=== PATIENT | male | born 1975 | race African-American/Black ===

== ENCOUNTER 2020-09-03 12:59 | Observation (INO) ==
[2020-09-03] MEDS ORDERED: ONDANSETRON 4 MG/2 ML VIAL IM STA (14:52)
[2020-09-03] MEDS ORDERED: MORPHINE 4 MG/1 ML VIAL IM STA (14:52)
[2020-09-03] MEDS ORDERED: MORPHINE 4 MG/1 ML VIAL IV PRN (15:57)
[2020-09-03] MEDS ORDERED: ONDANSETRON 4 MG/2 ML VIAL IV PRN (15:57)
[2020-09-03] MEDS ORDERED: ACETAMINOPHEN 325 MG TABLET PO PRN (15:57)
[2020-09-03 16:19] LABS: Basophils % 0.5 % (0.0-0.8); Eosinophils # 0.2 10*3/uL (0.0-0.87); Eosinophils % 2.2 % (0.00-10.9); Hematocrit 42.3 VOL% (42.0-52.0); Hemoglobin 14.7 GM/DL (14.0-18.0); Immature Granulocytes % 0.2 %; Immature Granulocytes Absolute 0.02 #; Lymphocytes # 3.9 10*3/uL (1.4-4.0); Lymphocytes % 44.5 % (21.2-54.2); Mean Corpuscular HGB Conc 34.8 GM/DL (32-36); Mean Corpuscular Volume 85.1 FL (87-102); Mean Platelet Volume 9.1 FL (9.6-12.0); Monocytes % 9.8 % (1.7-12.7); Neutrophils % 42.8 % (38.7-73.9); Platelet Count 250 T/CUMM (130-400); Red Blood Count 4.97 MC/CUMM (3.8-5.5); Red Cell Distribution Width 13.1 % (9.3-17.3); White Blood Count 8.8 T/CUMM (4-12)
[2020-09-03 16:51] LABS: Albumin 3.7 G/DL (3.4-5.0); Bilirubin,Total 0.4 MG/DL (0.2-1.0); Calcium 8.8 MG/DL (8.5-10.1); Osmolality,Calculated 275.4 MOS/KG (273-304); Total Protein 7.1 G/DL (6.4-8.3)
[2020-09-03] MEDS: PANTOPRAZOLE 40 MG TABLET PO SCH (21:45)
[2020-09-04] MEDS: PANTOPRAZOLE 40 MG TABLET PO SCH (08:09)
[2020-09-04] MEDS ORDERED: BUPIVACAINE LIPOSOMAL 20 ML/266 MG VIAL ONE (09:50)
[2020-09-04] MEDS ORDERED: LIDOCAINE 2% TOP JELLY 20 ML VIAL INTRAURETH ONE ×2 (10:24→10:25)
[2020-09-04] MEDS ORDERED: MEPERIDINE 25 MG/1 ML VIAL IV PRN (10:54)
[2020-09-04] MEDS ORDERED: HYDROmorphone 2 MG/1 ML VIAL IV PRN (10:54)
[2020-09-04] MEDS ORDERED: ONDANSETRON 4 MG/2 ML VIAL IV PRN (10:54)
[2020-09-04] MEDS ORDERED: PROMETHAZINE INJ 25 MG in SODIUM CHLORIDE 0.9% 50 ML IV PRN (10:54)
[2020-09-04] MEDS ORDERED: diphenhydrAMINE 50 MG/1 ML VIAL IV PRN (10:54)
[2020-09-04] MEDS ORDERED: propofoL 200 MG/20 ML VIAL IV ONE (10:58)
[2020-09-04] MEDS ORDERED: MIDAZOLAM 2 MG/2 ML VIAL ONE (10:58)
[2020-09-04] MEDS ORDERED: SEVOFLURANE 1 UNIT/15 MINUTE INH ONE (10:58)
[2020-09-04] MEDS ORDERED: LIDOCAINE 2% 5 ML VIAL ONE (10:58)
[2020-09-04] MEDS ORDERED: fentaNYL 100 MCG/2 ML VIAL ONE (10:59)
[2020-09-05 08:12] VITALS: BP 133/81
[2020-09-05] MEDS: PANTOPRAZOLE 40 MG TABLET PO SCH (09:00)
== END 2020-09-05 13:48 | disposition home or self-care (01) ==
LOC: N.EDINP 12:59 → N.ED 12:59 → N.EDINP 18:25 → N.4E 18:41
PROVIDERS: ADMIT Surgery; ATTEND Surgery